=== PATIENT | female | born 1980 | race African-American/Black ===

== ENCOUNTER 2017-08-03 19:25 | Emergency (ER) | payer MEDICAID, OTHER ==
[2017-08-03] MEDS ORDERED: ACETAMINOPHEN WITH CODEINE #3 TABLET PO ONE (20:05)
--- NOTE | 2017-08-03 20:05 | ER Document Report ---
ED Skin Rash/Insect Bite/Abscs - General Chief Complaint: Abscess Stated Complaint: LUMP ON BACK Time Seen by Provider: 08/03/17 19:46 Notes: Patient is a 36-year-old female presents emergency department complaining of a bump on the backside of her left ribs it has been there for a couple months but over the past couple days has become more swollen, tender. She states it hurts to wear shirt over top of it. She denies any drainage from the site. Denies any previous history of abscesses, cellulitis, MRSA or VRE denies any fevers or chills. - Related Data Allergies/Adverse Reactions: No Known Allergies Allergy (Unverified 08/03/17 19:28) Past Medical History - Social History Smoking Status: Unknown if Ever Smoked Family History: Reviewed & Not Pertinent Renal/ Medical History: Denies: Hx Peritoneal Dialysis Review of Systems - Review of Systems Constitutional: No symptoms reported Skin: See HPI -: Yes All other systems reviewed and negative Physical Exam - Vital signs Vitals: Temp Pulse Resp BP Pulse Ox 98.8 F 98 17 128/53 H 100 08/03/17 19:28 08/03/17 19:28 08/03/17 19:28 08/03/17 19:28 08/03/17 19:28 - General General appearance: Appears well, Alert In distress: None - Skin Skin Temperature: Warm Skin Moisture: Dry Skin Color: Normal Skin Turgor: Elastic Skin irregularity: other - Cystic lesion noted on the left posterior rib cage that is tender to touch with warmth, tenderness and central fluctuance Irregularity with: Tenderness, Warmth. negative: Induration, Weeping Course - Re-evaluation Re-evalutation: 08/03/17 20:59 Patient is a 36-year-old female hemodynamic stable, no acute distress afebrile. Presentation today is consistent with an inflamed cyst. I&D performed at the bedside with resolution of pressure. Patient states that she clinically feels much better. Otherwise no signs of underlying cellulitis. Patient is stable for discharge home - Vital Signs Vital signs: Temp Pulse Resp BP Pulse Ox 98.7 F 98 16 123/78 98 08/03/17 21:14 08/03/17 19:28 08/03/17 21:14 08/03/17 21:14 08/03/17 21:14 Procedures - Incision and Drainage Back Type: Simple Anesthetic type: 1% Lidocaine mL's of anesthetic: 4 Blade size: 11 I&D procedure: Betadine prep applied Incision Method: Incision made by scalpel Amount/type of drainage: Approximately 5 cc of cystic material without any evidence of purulent drai Discharge - Discharge Clinical Impression: Inflamed sebaceous cyst Condition: Good Disposition: HOME, SELF-CARE Instructions: Acetaminophen, Cephalexin ([facility]), Use of Uvzx-Wzi-Ezjieea Ibuprofen ([facility]), Post Incision and Drainage, Warm Packs ([facility]) Additional Instructions: Please follow-up with your primary care provider in 3 days for wound check. Otherwise please dress daily using gauze Prescriptions: Cephalexin Monohydrate [Keflex 500 mg Capsule] 500 mg PO Q6H 5 Days capsule
[2017-08-03 21:15] VITALS: BP 123/78
== END 2017-08-03 21:15 | disposition home or self-care (01) ==
LOC: ER 19:25
PROC: 0H96XZZ Drainage of Back Skin, External Approach (ICD-10-PCS; principal; 2017-08-03)
DX: L72.3 Sebaceous cyst (principal); L02.212 Cutaneous abscess of back [any part, except buttock and flank]
CPT/HCPCS: 99283

== ENCOUNTER 2017-09-27 11:19 | Emergency (ER) | payer OTHER ==
--- NOTE | 2017-09-27 11:41 | ER Document Report ---
ED Medical Screen (RME) - General Chief Complaint: Abdominal Pain Stated Complaint: NAUSEA Time Seen by Provider: 09/27/17 11:39 Notes: Patient has been nauseated for the past week. Has not vomited. Has had diarrhea this morning. Feeling lightheaded. Has been able to eat. Has not noticed any blood in the diarrhea. Has not had a fever. LMP 10/30, on no control. No abdominal surgeries. TRAVEL OUTSIDE OF THE [place] IN LAST 30 DAYS: No - Related Data Allergies/Adverse Reactions: No Known Allergies Allergy (Verified 09/27/17 11:26) Past Medical History Renal/ Medical History: Denies: Hx Peritoneal Dialysis - Immunizations Hx Diphtheria, Pertussis, Tetanus Vaccination: No Physical Exam - Vital signs Vitals: Temp Pulse Resp BP Pulse Ox 98.7 F 84 18 111/57 L 100 09/27/17 11:27 09/27/17 11:27 09/27/17 11:27 09/27/17 11:27 09/27/17 11:27 Course - Vital Signs Vital signs: Temp Pulse Resp BP Pulse Ox 98.7 F 84 18 111/57 L 100 09/27/17 11:27 09/27/17 11:27 09/27/17 11:27 09/27/17 11:27 09/27/17 11:27
[2017-09-27 12:26] LABS: APPEARANCE,URINE SLIGHTLY-CLOUDY; BILIRUBIN,URINE NEGATIVE (NEGATIVE); GLUCOSE, URINE NEGATIVE (NEGATIVE); KETONES,URINE NEGATIVE (NEGATIVE); LEUKOCYTE ESTERASE,URINE TRACE (NEGATIVE); NITRITE,URINE NEGATIVE (NEGATIVE); PROTEIN,URINE NEGATIVE (NEGATIVE); URINE SPECIFIC GRAVITY 1.026; UROBILINOGEN,URINE NEGATIVE mg/dL (<2.0)
[2017-09-27 12:42] LABS: ALANINE AMINOTRANSFERASE 24 U/L (9-52); ALBUMIN 4.1 g/dL (3.5-5.0); ALKALINE PHOSPHATASE 64 U/L (38-126); ANION GAP 13 (5-19); ASPARTATE AMINO TRANSFERASE 31 U/L (14-36); BILIRUBIN,DIRECT 0.3 mg/dL (0.0-0.4); BILIRUBIN,TOTAL 0.3 mg/dL (0.2-1.3); BLOOD UREA NITROGEN 16 mg/dL (7-20); CARBON DIOXIDE 27 mmol/L (22-30); CHLORIDE 106 mmol/L (98-107); CREATININE RESULT 1.05 mg/dL (0.52-1.25); GLUCOSE 74 mg/dL (75-110); LIPASE 473.1 U/L (23-300); POTASSIUM 4.4 mmol/L (3.6-5.0); SODIUM 145.5 mmol/L (137-145); TOTAL PROTEIN 7.4 g/dL (6.3-8.2)
[2017-09-27] MEDS ORDERED: ACETAMINOPHEN 325 MG TABLET PO ONE (14:17)
[2017-09-27] MEDS ORDERED: DICYCLOMINE HCL 20 MG TABLET PO ONE (14:41)
[2017-09-27] MEDS ORDERED: METOCLOPRAMIDE HCL 10 MG TABLET PO ONE (14:41)
[2017-09-27 15:18] LABS: ABSOLUTE EOSINOPHILS # (AUTO) 0.1 10^3/uL (0.0-0.6); ABSOLUTE LYMPHOCYTES (AUTO) 1.3 10^3/uL (0.5-4.7); ABSOLUTE MONOCYTES (AUTO) 0.6 10^3/uL (0.1-1.4); ABSOLUTE NEUT (AUTO) 3.2 10^3/uL (1.7-8.2); BASOPHILS % (AUTO) 0.3 % (0-2); EOSINOPHILS % (AUTO) 1.5 % (0-6); HEMOGLOBIN 13.7 g/dL (12.0-15.5); HGB HCT DIFFERENCE 0.1; LYMPHOCYTES % (AUTO) 25.9 % (13-45); MEAN CORPUSCULAR HEMOGLOBIN 31.3 pg (27.0-33.4); MEAN CORPUSCULAR HGB CONC 33.4 g/dL (32.0-36.0); MEAN CORPUSCULAR VOLUME 94 fl (80-97); MONOCYTES % (AUTO) 10.9 % (3-13); RED BLOOD COUNT 4.38 10^6/uL (3.72-5.28); RED CELL DISTRIBUTION WIDTH 13.4 % (11.5-14.0); SEGMENTED NEUTROPHILS % (AUTO) 61.4 % (42-78); WHITE BLOOD COUNT 5.2 10^3/uL (4.0-10.5)
--- NOTE | 2017-09-27 15:33 | ER Document Report ---
ED General - General Chief Complaint: Abdominal Pain Stated Complaint: NAUSEA Time Seen by Provider: 09/27/17 11:39 Mode of Arrival: Ambulatory Information source: Patient Notes: 36-year-old female presents with complaints of abdominal pain. Patient denies any fevers or chills admits to nausea patient notes the pain is all in the left lower quadrant associated with severe diarrhea since this morning. Patient does know she has been drinking heavily yesterday as well. Patient denies a history of pancreatitis denies any upper abdominal pain at all TRAVEL OUTSIDE OF THE [place] IN LAST 30 DAYS: No - HPI Onset: This morning Onset/Duration: Sudden Quality of pain: Cramping Severity: Mild Pain Level: 1 Associated symptoms: Diarrhea, Nausea Exacerbated by: Denies Relieved by: Denies Similar symptoms previously: No Recently seen / treated by doctor: No - Related Data Allergies/Adverse Reactions: No Known Allergies Allergy (Verified 09/27/17 11:26) Home Medications: Current Home Medications Methylphenidate HCl [Concerta] 36 mg PO DAILY 09/27/17 [History] Zolpidem Tartrate [Ambien] 10 mg PO DAILY 09/27/17 [History] Past Medical History - Social History Smoking Status: Never Smoker Cigarette use (# per day): No Chew tobacco use (# tins/day): No Smoking Education Provided: No Frequency of alcohol use: Social Drug Abuse: None Family History: Reviewed & Not Pertinent Patient has suicidal ideation: No Patient has homicidal ideation: No Renal/ Medical History: Denies: Hx Peritoneal Dialysis - Immunizations Hx Diphtheria, Pertussis, Tetanus Vaccination: No Review of Systems - Review of Systems Notes: REVIEW OF SYSTEMS: CONSTITUTIONAL : Denies fever, chills, or sweats. Denies recent illness. EENT: Denies eye, ear, throat, or mouth pain or symptoms. Denies nasal or sinus congestion or discharge. Denies throat, tongue, or mouth swelling or difficulty swallowing. CARDIOVASCULAR: Denies chest pain. Denies palpitations or racing or irregular heart beat. Denies ankle edema. RESPIRATORY: Denies cough, cold, or chest congestion. Denies shortness of breath, difficulty breathing, or wheezing. GASTROINTESTINAL: Admits of lower quadrant abdominal pain with diarrhea and nausea GENITOURINARY: Denies difficulty urinating, painful urination, burning, frequency, blood in urine, or discharge. FEMALE GENITOURINARY: Denies vaginal bleeding, heavy or abnormal periods, irregular periods. Denies vaginal discharge or odor. MUSCULOSKELETAL: Denies back or neck pain or stiffness. Denies joint pain or swelling. SKIN: Denies rash, lesions or sores. HEMATOLOGIC : Denies easy bruising or bleeding. LYMPHATIC: Denies swollen, enlarged glands. NEUROLOGICAL: Denies confusion or altered mental status. Denies passing out or loss of consciousness. Denies dizziness or lightheadedness. Denies headache. Denies weakness or paralysis or loss of use of either side. Denies problems with gait or speech. Denies sensory loss, numbness, or tingling. Denies seizures. PSYCHIATRIC: Denies anxiety or stress. Denies depression, suicidal ideation, or homicidal ideation. ALL OTHER SYSTEMS REVIEWED AND NEGATIVE. PHYSICAL EXAMINATION: GENERAL: Well-appearing, well-nourished and in no acute distress. HEAD: Atraumatic, normocephalic. EYES: Pupils equal round and reactive to light, extraocular movements intact, conjunctiva are normal. ENT: Nares patent, oropharynx clear without exudates. Moist mucous membranes. NECK: Normal range of motion, supple without lymphadenopathy LUNGS: Breath sounds clear to auscultation bilaterally and equal. No wheezes rales or rhonchi. HEART: Regular rate and rhythm without murmurs ABDOMEN: Soft, minimally tender left lower quadrant no rebound no guarding Female : deferred Musculoskeletal: Normal range of motion, no pitting or edema. No cyanosis. NEUROLOGICAL: Cranial nerves grossly intact. Normal speech, normal gait. Normal sensory, motor exams PSYCH: Normal mood, normal affect. SKIN: Warm, Dry, normal turgor, no rashes or lesions noted. Dictation was performed using [employer] voice recognition software Physical Exam - Vital signs Vitals: Temp Pulse Resp BP Pulse Ox 98.7 F 84 18 111/57 L 100 09/27/17 11:27 09/27/17 11:27 09/27/17 11:27 09/27/17 11:27 09/27/17 11:27 Course - Re-evaluation Re-evalutation: 09/27/17 16:49 Patient's pain is consistent with spasms from her intestines given that it comes on every 15-20 minutes and then is associated with diarrhea which once the diarrhea occurs her symptoms resolved. There is no family history of Crohn' s ulcerative colitis diverticulitis or IBS, given that symptoms are acute and the patient looks well I do not expect any life-threatening issues, her lipase was slightly elevated we had a very long discussion regarding this and concerns for pancreatitis but given that she is able to hold orally and has no upper abdominal pain I do not believe that this is the case but I did encourage her to decrease her alcohol abuse and to follow-up for this as well After performing a Medical Screening Examination, I estimate there is LOW risk for ACUTE APPENDICITIS, BOWEL OBSTRUCTION, ACUTE CHOLECYSTITIS, PERFORATED DIVERTICULITIS, INCARCERATED HERNIA, PANCREATITIS, PELVIC INFLAMMATORY DISEASE, PERFORATED ULCER, ECTOPIC , or TUBO-OVARIAN ABSCESS, thus I consider the discharge disposition reasonable. Also, there is no evidence or peritonitis , sepsis, or toxicity. I have reevaluated this patient multiple times and no significant life threatening changes are noted. The patient and I have discussed the diagnosis and risks, and we agree with discharging home with close follow-up with the understanding that symptoms and presentations can change. We also discussed returning to the Emergency Department immediately if new or worsening symptoms occur. We have discussed the symptoms which are most concerning (e.g., bloody stool, fever, changing or worsening pain, vomiting) that necessitate immediate return. - Vital Signs Vital signs: Temp Pulse Resp BP Pulse Ox 98.7 F 80 16 108/60 100 09/27/17 11:27 09/27/17 15:42 09/27/17 15:42 09/27/17 15:42 09/27/17 15:42 - Laboratory Result Diagrams: 09/27/17 14:53 09/27/17 12:03 Laboratory results interpreted by me: 09/27/17 09/27/17 12:03 12:03 Sodium 145.5 H Glucose 74 L Lipase 473.1 H Ur Leukocyte Esterase TRACE H Urine Ascorbic Acid 20 H Discharge - Discharge Clinical Impression: Abdominal pain Qualifiers: Abdominal location: left lower quadrant Qualified Code(s): R10.32 - Left lower quadrant pain Pancreatitis Qualifiers: Chronicity: acute Pancreatitis type: unspecified pancreatitis type Acute pancreatitis complication: unspecified Qualified Code(s): K85.90 - Acute pancreatitis without necrosis or infection, unspecified Condition: Stable Disposition: HOME, SELF-CARE Instructions: Abdominal Pain ([facility]), Pancreatitis ([facility]) Additional Instructions: Follow up with your physician tomorrow for further care or return to the ED IMMEDIATELY if symptoms worsen or new concerns occur. If you cannot afford to follow up with your primary care physician a list of low cost clinics have been provided at the end of your discharge papers as well. Prescriptions: Dicyclomine HCl [Bentyl 20 mg Tablet] 20 mg PO QID #40 tablet Metoclopramide HCl [Reglan 10 mg Tablet] 1 - 2 tab PO ASDIR PRN #25 tablet PRN Reason:
[2017-09-27 15:42] VITALS: BP 108/60
== END 2017-09-27 15:42 | disposition home or self-care (01) ==
LOC: ER 11:19
DX: K85.90 Acute pancreatitis without necrosis or infection, unspecified (principal); R10.32 Left lower quadrant pain; R11.0 Nausea; Z79.899 Other long term (current) drug therapy
CPT/HCPCS: 99284; 36415; 83690; 84703; 85025; 80053; 81001; J3490